=== PATIENT | male | born 1945 | race Hispanic/Latino ===

== ENCOUNTER 2018-06-07 07:43 | Outpatient (CLI) | payer MEDICARE, MEDICAID | END 2018-06-07 07:44 | disposition home or self-care (01) | LOC: RAD 07:43 ==

== ENCOUNTER 2018-08-09 18:55 | Emergency (ER) | payer MEDICARE, MEDICAID ==
--- NOTE | 2018-08-09 19:54 | ED PDOC ---
Arrival/HPI <Sherwin Blas - Last Filed: 08/09/18 20:33> - General Historian: Patient, Spouse - History of Present Illness Narrative History of Present Illness (Text): 08/09/18 19:54 CC: abnormal colored urine HPI: 73 yo male w/ PMH of CAD (w/ stents), BPH, HLD and memory problems comes to the ED for evaluation of abnormal colored urine. Patient states that after he noticed the bloody urine he setup an appointment with his primary medical doctor today at the office. Patient was asked to give urine sample for which the SUPERVISOR [employer]IALS then stated that the patient should go to the ED for evaluation. Patient currently with no complaints. Denies fevers, chills, cp, sob, n/v, constipation or diarrhea, all urinary symptoms, weakness, dizziness, and LIZARRAGA. Patient states he feels completely fine and does not know why he needs to be hospitalized if he is feeling "fine". No previous episodes. Reports he quit smoking over 6 years ago. Time/Duration: < week Symptom Onset: Sudden Symptom Course: Unchanged Activities at Onset: Rest Context: Sitting <Sreedhar Lou - Last Filed: 08/09/18 20:47> - General Chief Complaint: Male Genitourinary Time Seen by Provider: 08/09/18 19:08 Past Medical History - Provider Review Nursing Documentation Reviewed: Yes - Cardiac Hx MO: Yes Hx Hypertension: Yes Hx Pacemaker: No - Pulmonary Hx Respiratory Disorders: No - Neurological Hx Paralysis: No - HEENT Hx HEENT Disorder: No - Renal Hx Renal Disorder: No - Hematological/Oncological Hx Blood Transfusions: No Hx Blood Transfusion Reaction: No - Musculoskeletal/Rheumatological Hx Musculoskeletal Disorders: No - Psychiatric Hx Emotional Abuse: No Hx Physical Abuse: No Hx Substance Use: No - Surgical History Hx Cardiac Catheterization: Yes Hx Coronary Stent: Yes - Anesthesia Hx Anesthesia: Yes Hx Anesthesia Reactions: No Hx Malignant Hyperthermia: No - Suicidal Assessment Feels Threatened In Home Enviroment: No <Sreedhar Lou - Last Filed: 08/09/18 20:47> Family/Social History - Physician Review Nursing Documentation Reviewed: Yes Family/Social History: No Known Family HX Smoking Status: Former Smoker Hx Alcohol Use: No Hx Substance Use: No <Sreedhar Lou - Last Filed: 08/09/18 20:47> Allergies/Home Meds <RoopaSherwin - Last Filed: 08/09/18 20:33> <Sreedhar Lou - Last Filed: 08/09/18 20:47> Allergies/Adverse Reactions: Allergies No Known Allergies Allergy (Verified 08/09/18 19:45) Home Medications: Home Meds Medication Instructions Recorded Confirmed Aspirin [Ecotrin] 81 mg PO DAILY 02/24/17 03/05/17 Cholecalciferol (Vitamin D3) 2,000 unit PO DAILY 02/24/17 03/05/17 [Vitamin D3] Donepezil [Aricept] 10 mg PO DAILY 02/24/17 03/05/17 Dutasteride [Avodart] 0.5 mg PO DAILY 02/24/17 03/05/17 Ezetimibe [Zetia] 10 mg PO DAILY 02/24/17 03/05/17 Fish Oil/Dha/Epa [Fish Oil 1,200 1 cap PO DAILY 02/24/17 03/05/17 mg Fish Oil] Ginkgo Biloba 120 mg PO DAILY 02/24/17 03/05/17 Isosorbide Mononitrate [Isosorbide 30 mg PO DAILY 02/24/17 03/05/17 Mononitrate ER] Memantine HCl/Donepezil HCl 1 cap PO DAILY 02/24/17 03/05/17 [Namzaric 28 mg-10 mg Capsule] Multivitamin [Daily Ady] 1 tab PO DAILY 02/24/17 03/05/17 Tamsulosin HCl [Flomax] 0.4 mg PO DAILY 02/24/17 03/05/17 Ubidecarenone [Co Q10] 100 mg PO DAILY 02/24/17 03/05/17 oxyCODONE/Acetaminophen [Percocet 1 PO Q6 PRN 03/05/17 5/325 mg Tab] Review of Systems - Review of Systems Constitutional: Normal. absent: Fatigue, Weight Change Eyes: Normal ENT: Normal Respiratory: Normal, SOB. absent: Cough, Sputum Cardiovascular: Normal. absent: Chest Pain, LIZARRAGA, Syncope Gastrointestinal: Normal. absent: Abdominal Pain, Constipation, Nausea, Vomi ting Genitourinary Male: Hematuria. absent: Dysuria, Frequency Musculoskeletal: Normal. absent: Arthralgias, Back Pain, Neck Pain Skin: Normal. absent: Rash, Pruritis, Skin Lesions Neurological: Normal. absent: Headache, Dizziness Endocrine: Normal. absent: Diaphoresis, Polyuria Psychiatric: Normal. absent: Anxiety, Depression <Sreedhar Lou - Last Filed: 08/09/18 20:47> Physical Exam Vital Signs Temp Pulse Resp BP Pulse Ox 08/09/18 19:48 97.9 F 58 L 18 140/49 L 98 <RoopaSherwin - Last Filed: 08/09/18 20:33> Vital Signs Reviewed: Yes Vital Signs Temp Pulse Resp BP Pulse Ox 08/09/18 19:48 97.9 F 58 L 18 140/49 L 98 Temperature: Afebrile Blood Pressure: Normal Pulse: Bradycardic Respiratory Rate: Normal Appearance: Positive for: Well-Appearing, Non-Toxic, Comfortable Pain Distress: None Mental Status: Positive for: Alert and Oriented X 3 - Systems Exam Head: Present: Atraumatic, Normocephalic Pupils: Present: PERRL Extroacular Muscles: Present: EOMI Conjunctiva: Present: Normal Mouth: Present: Moist Mucous Membranes Neck: Present: Normal Range of Motion. No: Meningeal Signs, JVD Respiratory/Chest: Present: Clear to Auscultation, Good Air Exchange. No: Respiratory Distress, Accessory Muscle Use Cardiovascular: Present: Regular Rate and Rhythm, Normal S1, S2. No: Murmurs, Tachycardic Abdomen: Present: Normal Bowel Sounds. No: Tenderness, Distention, Peritoneal Signs Upper Extremity: Present: Normal Inspection. No: Cyanosis, Edema Lower Extremity: Present: Normal Inspection. No: Edema Neurological: Present: GCS=15, CN II-XII Intact, Speech Normal Skin: Present: Warm, Dry, Normal Color. No: Rashes Psychiatric: Present: Alert, Oriented x 3, Normal Insight, Normal Concentration <Guille Louaser - Last Filed: 08/09/18 20:47> Medical Decision Making ED Course and Treatment: 08/09/18 20:07 Impression 73 yo male w/ PMH of CAD (w/ stents), BPH, HLD and memory problems comes to the ED for evaluation of abnormal colored urine. Plan -CBC -CMP -U/A Prior Visits No prior admissions to hospital. Progress Notes will check U/A, patient completely asymptomatic, may benefit from outpatient urology eval including but not limited to PSA baseline level and cystoscopy 08/09/18 20:43 U/A shows large blood and protein but no signs of infection noted will recommend outpatient followup with Dr. Brandi augustin for PSA and possible cystoscopy Re-evaluation Time: 20:44 Reassessment Condition: Re-examined - Lab Interpretations Lab Results: 08/09/18 20:11 08/09/18 20:11 Lab Results 08/09/18 20:11: Sodium 143, Potassium 3.9, Chloride 109 H, Carbon Dioxide 24, Anion Gap 14, BUN 18, Creatinine 1.1, Est GFR ( Amer) > 60, Est GFR (Non- Af Amer) > 60, Random Glucose 101, Calcium 9.2, Total Bilirubin 0.4, AST 41, ALT 39, Alkaline Phosphatase 64, Total Protein 7.4, Albumin 4.2, Globulin 3.2, Albumin/Globulin Ratio 1.3 08/09/18 20:11: Urine Color Yellow, Urine Appearance Cloudy, Urine pH 5.5, Ur Specific [place] >= 1.030, Urine Protein 100 H, Urine Glucose (UA) Negative, Urine Ketones Trace H, Urine Blood Large H, Urine Nitrate Negative, Urine Bilirubin Small H, Urine Urobilinogen 0.2, Ur Leukocyte Esterase Negative, Urine RBC Tntc H, Urine WBC 0 - 2, Ur Epithelial Cells 0 - 2, Urine Bacteria Few 08/09/18 20:11: WBC 6.9, RBC 4.60, Hgb 14.6, Hct 43.3, MCV 94.1, MCH 31.7, MCHC 33.7, RDW 12.7, Plt Count 157, MPV 9.7, Neut % (Auto) 46.2 L, Lymph % (Auto) 42.9 H, [place] % (Auto) 7.9 H, Eos % (Auto) 2.6, Baso % (Auto) 0.4, Lymph # (Auto) 2.9, [place] # (Auto) 0.5, Eos # (Auto) 0.2, Baso # (Auto) 0.03, Absolute Neuts (auto) 3.17 I have reviewed the lab results: Yes Interpretation: Abnormal lab values <Guille Louaser - Last Filed: 08/09/18 20:47> - 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 MD/DO has examined the patient and agrees with the treatment plan. - Scribe Statement The provider has reviewed the documentation as recorded by the Scribe Patient Seen with Resident: In agreement with resident note which contains more details about the patient. Patient seen and evaluated with resident. Came up with plan and treatment together. <Sherwin Blas - Last Filed: 08/09/18 20:33> Disposition/Present on Arrival <Sherwin Blas - Last Filed: 08/09/18 20:33> - Present on Arrival Any Indicators Present on Arrival: No History of DVT/PE: No History of Uncontrolled Diabetes: No Urinary Catheter: No History of Decub. Ulcer: No History Surgical Site Infection Following: None - Disposition Have Diagnosis and Disposition been Completed?: Yes Disposition Time: 20:45 Patient Plan: Discharge <Sreedhar Lou - Last Filed: 08/09/18 20:47> - Disposition Diagnosis: Hematuria, Proteinuria Disposition: HOME/ ROUTINE Condition: GOOD Discharge Instructions (ExitCare): Blood in the Urine (Hematuria) in Adults Additional Instructions: 1. Please followup with urology outpatient Dr. Say Augustin for management of hematuria 2. Patient should return to hospital if symptoms worsen or recur. Referrals: Ang Augustin MD [Staff Provider] - Follow up with primary Forms: [employer] (Yoruba)
[2018-08-09 20:00] VITALS: RESP 18; BMI 30.7
[2018-08-09 20:15] LABS: BASO # 0.03 K/mm3 (0.0-2.0); BASO % 0.4 % (0.0-3.0); EOS # 0.2 (0.0-0.7); EOS % 2.6 % (1.5-5.0); HEMOGLOBIN 14.6 g/dL (14.0-18.0); LYMPH # 2.9 (1.2-3.4); LYMPH % 42.9 % (22.0-35.0); MEAN CELL VOLUME 94.1 fl (80.0-105.0); MEAN CORPUSCULAR HEMOGLOBIN 31.7 pg (25.0-35.0); MEAN CORPUSCULAR HGB CONC 33.7 g/dl (31.0-37.0); MEAN PLATELET VOLUME 9.7 fl (7.0-11.0); MONO # 0.5 (0.1-0.6); MONO % 7.9 % (1.0-6.0); RBC 4.6 10^6/uL (3.5-6.1); RED CELL DISTRIBUTION WIDTH 12.7 % (11.5-14.5); WHITE BLOOD COUNT 6.9 10^3/uL (4.5-11.0)
[2018-08-09 20:17] LABS: PH,URINE 5.5 (4.7-8.0); URINE BILIRUBIN SMALL (NEGATIVE); URINE BLOOD LARGE (NEGATIVE); URINE GLUCOSE (UA) NEGATIVE (NEGATIVE); URINE LEUKOCYTE ESTERASE NEGATIVE Leu/uL (NEGATIVE); URINE PROTEIN 100 mg/dL (<30 mg/dL); URINE UROBILINOGEN 0.2 E.U./dL (<1 E.U./dL)
[2018-08-09 20:28] LABS: URINE APPEARANCE CLOUDY (CLEAR); URINE COLOR YELLOW (YELLOW)
[2018-08-09 20:32] LABS: ALB/GLOB RATIO 1.3 (1.1-1.8); ALBUMIN 4.2 g/dL (3.0-4.8); ALT/SGPT 39 U/L (7-56); AST/SGOT 41 U/L (17-59); BLOOD UREA NITROGEN 18 mg/dL (7-21); CALCIUM 9.2 mg/dL (8.4-10.5); GFR NON-AFRICAN AMERICAN > 60
[2018-08-09 20:34] LABS: URINE RBC TNTC /hpf (0-2); URINE WBC 0 - 2 /hpf (0-6)
[2018-08-09 20:35] LABS: URINE EPITHELIAL CELLS 0 - 2 /hpf (0-5)
[2018-08-09 20:36] LABS: URINE BACTERIA FEW /hpf
[2018-08-09 20:51] VITALS: BP 145/59; PULSE 61; TEMP 97.8; O2SAT 99
== END 2018-08-09 20:54 | disposition home or self-care (01) ==
LOC: ED 18:55
DX: R80.9 Proteinuria, unspecified (principal); R31.9 Hematuria, unspecified; E78.5 Hyperlipidemia, unspecified; I10 Essential (primary) hypertension; I25.10 Atherosclerotic heart disease of native coronary artery without angina pectoris; I25.2 Old myocardial infarction; N40.0 Benign prostatic hyperplasia without lower urinary tract symptoms; Z87.891 Personal history of nicotine dependence